=== PATIENT | female | born 1960 | race African-American/Black ===

== ENCOUNTER 2023-11-05 10:15 | Inpatient (IN) | payer OTHER ==
[~2023-11-05] VITALS: Ht 160 cm; Wt 65.3 kg
[2023-11-05] MEDS: FAMOTIDINE 20MG/2ML VIAL IV STA (11:06)
[2023-11-05] MEDS: ONDANSETRON HCL 4MG/2ML INJ IV STA (11:06)
[2023-11-05 11:23] LABS: BASOPHILS % 1.1 % (0.0-2.0); EOSINOPHILS % 2.1 % (0.0-5.0); HEMATOCRIT. 38.3 % (36.0-48.0); HEMOGLOBIN. 12.3 g/dL (12.0-16.0); LYMPHOCYTES % 32.8 % (20.0-50.0); MEAN CORPUSCULAR HEMOGLOBIN 26.4 pg (28.0-32.0); MEAN CORPUSCULAR HGB CONC 32.2 g/dL (31.0-37.0); MONOCYTES % 5.9 % (2.0-8.0); NEUTROPHILS % 58.1 % (40.0-76.0); PLATELET 357 x1000/uL (130-400); RED BLOOD CELL COUNT 4.67 mill/uL (4.2-5.4); RED CELL DISTRIBUTION WIDTH 16.8 % (11.6-14.6); WHITE BLOOD COUNT 3.9 x1000/uL (4.5-11.0)
[2023-11-05] MEDS: SODIUM CHLORIDE 0.9% 1,000 ML IV ONE (11:27)
[2023-11-05 11:33] LABS: PROTHROMBIN TIME 10.7 sec (9.6-11.0)
[2023-11-05 11:45] LABS: ALANINE AMINOTRANSFERASE 12 IU/L (10-49); ALBUMIN 4.6 g/dL (3.2-4.8); ASPARTATE AMINOTRANSFERASE 14 IU/L (<34); BILIRUBIN TOTAL 0.6 mg/dL (0.1-1.0); CALCIUM 9.2 mg/dL (8.7-10.4); CARBON DIOXIDE 24 mEq/L (21-32); CHLORIDE 105 mEq/L (98-107); CREATININE 0.7 mg/dL (0.6-1.0); GLUCOSE 175 mg/dL (70-105); POTASSIUM 3.8 mEq/L (3.5-5.1); PROTEIN TOTAL 7.6 g/dL (6.0-8.3); SODIUM 140 mEq/L (136-145); TROPONIN I HIGH SENSITIVITY 21 ng/L (3.0-34); UREA NITROGEN BLOOD 10 mg/dL (9-23)
[2023-11-05] MEDS: MECLIZINE 25MG TABLET PO ONE (13:19)
[2023-11-05] MEDS: METOCLOPRAMIDE HCL 10MG/2ML VIAL IV ONE (13:34)
[2023-11-05 13:55] LABS: CLARITY URINE CLEAR (CLEAR); COLOR URINE YELLOW (YELLOW); GLUCOSE URINE NEGATIVE (NEGATIVE); KETONES URINE NEGATIVE (NEGATIVE); LEUKOCYTE ESTERASE URINE NEGATIVE (NEGATIVE); NITRITE URINE NEGATIVE (NEGATIVE); OCCULT BLOOD URINE NEGATIVE (NEGATIVE); PH URINE 7.5 (4.5-8.0); PROTEIN URINE NEGATIVE (NEGATIVE); SPECIFIC GRAVITY URINE 1.011 (1.005-1.030); UROBILINOGEN URINE 0.2 E.U./dL (0.2-1.0)
[2023-11-05] MEDS: AMLODIPINE 5MG TABLET PO SCH (15:00)
[2023-11-05] MEDS ORDERED: ONDANSETRON HCL 4MG/2ML INJ IV PRN (15:00)
[2023-11-05] MEDS ORDERED: IPRATROPIUM/ALBUTEROL 0.5-3(2.5)MG/3ML NEB HHN PRN (15:00)
[2023-11-05] MEDS ORDERED: ACETAMINOPHEN 325MG TABLET PO PRN (15:00)
[2023-11-05] MEDS ORDERED: MECLIZINE 25MG TABLET PO PRN (15:00)
[2023-11-05] MEDS ORDERED: MECLIZINE 12.5MG TABLET PO PRN (15:30)
[2023-11-05] MEDS: SODIUM CHLORIDE 0.45% 1,000 ML IV ONE (16:08)
[2023-11-05] MEDS: ENOXAPARIN 40MG/0.4ML SYR SUBCUT SCH (16:09)
[2023-11-05] MEDS ORDERED: METF-416 PO (18:39)
[2023-11-05] MEDS ORDERED: NIFE-33 PO (18:39)
[2023-11-05] MEDS ORDERED: LOSA100T33 PO (18:39)
[2023-11-05] MEDS ORDERED: INSU100I28 SQ (18:39)
[2023-11-05 18:48] VITALS: BP 160/89; PULSE 74; RESP 21; TEMP 98.6
[2023-11-05 19:04] VITALS: BP 160/89; PULSE 71; RESP 15; TEMP 98.6
[2023-11-05 20:15] LABS: HEPATITIS B SURFACE ANTIGEN NEGATIVE (Negative); HEPATITIS C AB NON REACTIVE (Neg) (Negative)
[2023-11-05 23:53] LABS: CREATINE KINASE 93 IU/L (34-145); CREATINE KINASE MB FRACTION < 0.5 ng/mL (0.5-3.6); TROPONIN I HIGH SENSITIVITY 26 ng/L (3.0-34)
[2023-11-06] VITALS: BP 142/82; PULSE 70; RESP 13; TEMP 97.9
[2023-11-06] MEDS ORDERED: DEXTROSE 50% WATER 50ML SYRINGE IV PRN (00:45)
[2023-11-06 04:00] VITALS: BP 140/71; PULSE 71; RESP 17; TEMP 98.1
[2023-11-06 06:20] LABS: CREATINE KINASE 80 IU/L (34-145); TROPONIN I HIGH SENSITIVITY 24 ng/L (3.0-34)
[2023-11-06 06:24] LABS: CREATINE KINASE MB FRACTION < 0.0 ng/mL (0.5-3.6)
[2023-11-06] MEDS: BLOOD SUGAR DIAGNOSTIC STRIP TEST SCH (06:50)
[2023-11-06 08:00] VITALS: BP 160/91; PULSE 74; RESP 12; TEMP 98.2
[2023-11-06] MEDS: INSULIN LISPRO 100 UNITS/ML SUBCUT SCH (09:20)
[2023-11-06] MEDS ORDERED: MECLIZINE 25MG TABLET PO PRN (09:24)
[2023-11-06 12:00] VITALS: BP 153/93; PULSE 77; RESP 16; TEMP 98.2
[2023-11-06 16:13] VITALS: BP 153/93; PULSE 77; TEMP 98.2; O2SAT 100
== END 2023-11-06 16:50 | disposition home or self-care (01) | DRG 149 ==
LOC: ER 10:15 → 3WST 13:36 → EDBEDREQ 13:44 → EDBEDREQTM 13:44
PROVIDERS: ADMIT Internal Medicine; ATTEND Internal Medicine
DX: R42 Dizziness and giddiness (principal); E11.9 Type 2 diabetes mellitus without complications; I10 Essential (primary) hypertension; Z79.899 Other long term (current) drug therapy
CPT/HCPCS: 36415; 70551; 74176; 80053; 81003; 82550; 82553; 82962; 83036; 84484; 85025; 85379; 86705; 87340; 93005; 93880; 99285; J1650; J1815; J2405; J2765; J3490; J7030; J8597